=== PATIENT | male | born 1970 | race Caucasian/White ===

== ENCOUNTER 2023-04-03 08:56 | Emergency (ER) | payer BC, SELFPAY ==
[2023-04-03 09:00] VITALS: BP 172/97
[2023-04-03 10:10] LABS: % Basophils 0.6 % (0-2); % Eosinophils 2.1 % (0-6); % Immature Granulocytes 0.6 % (0-0.5); % Lymphocytes 22.7 % (20.5-51.1); % Monocytes 13.1 % (1.7-9.3); % Neutrophils 60.9 % (42.2-75.2); Absolute Eosinophils 0.2 10^3/uL (0-0.7); Absolute Lymphocytes 1.6 10^3/uL (1.2-3.4); Absolute Monocytes 0.9 10^3/uL (0.1-0.6); Absolute Neutrophils 4.4 10^3/uL (1.4-6.5); Hematocrit 43.7 % (39.0-52.0); Hemoglobin 15.5 g/dL (13.0-18.0); Mean Corp Hgb Conc. 35.5 g/dL (33.0-37.0); Mean Corpuscular Volume 90.3 fL (80.0-94.0); Mean Platelet Volume 9.7 fL (7.4-10.4); Nucleated Red Blood Cells % 0 % (-); Platelet Count 226 10^3/uL (130-400); Red Blood Cell Count 4.84 10^6/uL (4.70-6.10); Red Cell Dist. Width 11.8 % (11.5-14.5); White Blood Cell Count 7.2 10^3/uL (4.8-10.8)
[2023-04-03 10:24] LABS: ALT (SGPT) 57 U/L (0-50); AST (SGOT) 44 U/L (17-59); Albumin 4.2 g/dl (3.5-5.0); Alkaline Phosphatase 46 U/L (38-126); Blood Urea Nitrogen 13 mg/dl (9-20); Calcium 9.2 mg/dl (8.4-10.2); Carbon Dioxide 27 mmol/L (22-30); Chloride 106 mmol/L (98-107); Glucose 105 mg/dl (70-99); Potassium 4.1 mmol/L (3.5-5.1); Sodium 136 mmol/L (135-145); Total Bilirubin 0.6 mg/dl (0.2-1.3); Total Protein 6.9 g/dl (6.3-8.2); eGFR > 60.00
[2023-04-03 10:32] LABS: Troponin I < 0.012 ng/ml
[2023-04-03 11:07] VITALS: BMI 32.2
[2023-04-03 11:09] VITALS: BP 171/102
--- NOTE | 2023-04-03 11:12 | ED.GENMED ---
History of Present Illness
<Evy Mendoza PA-C - Last Filed: 04/03/23 18:39>
General
Chief Complaint: Chest Problem
Source: patient
Exam Limitations: none
Time Seen by Provider: 04/03/23 11:12
Nursing documentation reviewed up to this point in time: agreed with
Travel History
Have you had any contact with someone who has COVID-19?: No
Do you have any symptoms of coronavirus? Fever > 100 degrees, chills, cough, shortness of breath, sore throat, loss of taste or smell, muscle aches, or headache?: No
History of Present Illness
History of Present Illness:
52 y/o male with no PMH presenting to the ER today with spasming in the right side of his chest for the past few days. Patient states that when it started, he thought it was a typical muscle spasm, however this feeling persisted and his
recommended he present to emergency department for evaluation and is concerned about possible cardiac issue. Patient denies shortness of breath, back pain, jaw pain, shoulder pain, history of cardiac disease. Patient states that when he felt this
way, he took his blood pressure and he did notice it was elevated. Patient does follow-up with the family doc however he states that he primarily uses him for 6 visits via telehealth does not routinely follow-up. Said he is unsure how long his
blood pressure may have been elevated. Patient states that he has a history of early cardiac disease in his father and grandfather. Patient denies syncopal episodes dizziness. Patient states that he is not working out recently, lifting weights,
or had any trauma to the chest wall. Patient denies recent falls. Patient has never had anything like this before.
Review of Systems
<Evy Mendoza PA-C - Last Filed: 04/03/23 18:39>
Review of Systems
All Other Systems: ROS reviewed and negative except as documented in HPI and ROS
Phy Exam
<Evy Mendoza PA-C - Last Filed: 04/03/23 18:39>
Physical Exam
Physical Exam:
Vitals: Patient is hypertensive
General: Patient is well-appearing in no acute distress
Skin: Warm and dry, no rashes or lesion
Cardiac: Regular rate and rhythm, no murmurs. No palpable thrills. No palpable muscle spasms or fasciculations. Tenderness palpation of the external chest wall.
Pulm: Normal respiratory effort, no wheezes, no rales, no rhonchi.
Abdomen: No epigastric tenderness palpation, no pulsatile abdominal mass.
Neuro: Patient is awake and alert, in no acute distress.
Course
<Evy Mendoza PA-C - Last Filed: 04/03/23 18:39>
Orders/Labs/Results
Orders:
Orders
04/03/23 09:01
EKG [Electrocardiogram (*1)] Urgent
Reason for Study: Chest Pain
EKG- Treatment ONCE
04/03/23 09:45
Complete Blood Count/With Diff Urgent
Comprehensive Metabolic Panel Urgent
Troponin I Urgent
04/03/23 11:40
Metoprolol Xl [Toprol Xl] 25 mg PO NOW STA
Abnormal Lab Results
04/03/23
09:45
MCH 32.0 H pg
(27.0-31.0)
Absolute Monos (auto) 0.9 H 10^3/uL
(0.1-0.6)
Immature Gran % 0.6 H %
(0-0.5)
Monocytes % 13.1 H %
(1.7-9.3)
Glucose 105 H mg/dl
(70-99)
ALT 57 H U/L
(0-50)
04/03/23 09:45
04/03/23 09:45
Vital Signs
Initial and Last Documented VS:
Initial Vital Signs
Temp Pulse Resp BP Pulse Ox
98.2 F 94 18 172/97 97
04/03/23 09:00 04/03/23 09:00 04/03/23 09:00 04/03/23 09:00 04/03/23 09:00
Last Documented Vital Signs
Temp Pulse Resp BP Pulse Ox
98.2 F 67 18 174/118 98
04/03/23 09:00 04/03/23 12:00 04/03/23 12:00 04/03/23 11:44 04/03/23 12:00
<Anil Joaquin, DO - Last Filed: 04/12/23 13:27>
Orders/Labs/Results
Orders:
Orders
04/03/23 09:01
EKG [Electrocardiogram (*1)] Urgent
Reason for Study: Chest Pain
EKG- Treatment ONCE
04/03/23 09:45
Complete Blood Count/With Diff Urgent
Comprehensive Metabolic Panel Urgent
Troponin I Urgent
04/03/23 11:40
Metoprolol Xl [Toprol Xl] 25 mg PO NOW STA
Abnormal Lab Results
04/03/23
09:45
MCH 32.0 H pg
(27.0-31.0)
Absolute Monos (auto) 0.9 H 10^3/uL
(0.1-0.6)
Immature Gran % 0.6 H %
(0-0.5)
Monocytes % 13.1 H %
(1.7-9.3)
Glucose 105 H mg/dl
(70-99)
ALT 57 H U/L
(0-50)
04/03/23 09:45
04/03/23 09:45
Vital Signs
Initial and Last Documented VS:
Initial Vital Signs
Temp Pulse Resp BP Pulse Ox
98.2 F 94 18 172/97 97
04/03/23 09:00 04/03/23 09:00 04/03/23 09:00 04/03/23 09:00 04/03/23 09:00
Last Documented Vital Signs
Temp Pulse Resp BP Pulse Ox
98.2 F 67 18 174/118 98
04/03/23 09:00 04/03/23 12:00 04/03/23 12:00 04/03/23 11:44 04/03/23 12:00
<Evy Mendoza PA-C - Last Filed: 04/03/23 18:39>
MDM/Problems Addressed
Differential Diagnosis Includes:
Differentials include ACS, gastro chondritis, musculoskeletal sprain/strain, fasiculation
MDM/Problems Addressed:
chest discomfort
Chronic conditions affecting care: Psychiatric illness (anxiety)
<BARRY Macedo Last Filed: 04/03/23 18:39>
*Pulse Oximetry
Patient hypoxic: no
*EKG
Interpreted by ED Provider?: Yes
EKG Intrepretation Date: 04/03/23
Interpretation: normal
Comparison EKG: no comparison EKG present
Heart Rate: 85
Rate: normal
Rhythm: sinus
[place]: normal axis
Interval: normal interval, normal QT interval and normal AK interval
QRS Pattern: normal QRS
Ischemia: no ischemia
*Respiratory Equipment Assistant Interpretation
Rate: normal
Interpretation: normal
Heart Rate: 74
Rhythm: sinus
*Critical Care Note
Total Time (30-74mins, 75-104mins- exclusive of procedures): Not Applicable
Data Reviewed
Review of Other/Old Records Reveals: Records (no previous records to review )
Further Testing Considered But Not Given:
Considered chest x-ray, however patient is having no respiratory symptoms, no shortness of breath, no chest pain
<Evy Mendoza PA-C - Last Filed: 04/03/23 18:39>
Patient Management
Escalation/DeEscalation of care consider admission/obs:
52-year-old male with no past medical history history Emergency Department today with feelings of muscle spasming in the right side of his chest. When I evaluated patient, he was not having the spasms. He denies chest pain, shortness of breath,
syncopal episodes, lightheadedness, nausea or vomiting. His physical exam is unremarkable. His CBC and CMP were unremarkable. I suspect his symptoms you are experiencing are likely result of benign spontaneous muscle fasciculations. Considering
patient has poor outpatient follow-up and has had elevated pressures here in the emergency department, will start patient on metoprolol. Until he is able to get in with cardiology/his PCP. Considering he had an episode of chest and has a history
of early cardiac in the family, we will have him follow-up with cardiology and make an appointment within the coming days.
ED Attending Note
<Evy Mendoza PA-C - Last Filed: 04/03/23 18:39>
-
Portions of this chart may have been created with voice recognition software.� Occasional wrong word or��sound alike� substitutions may have occurred due to the inherent limitations of voice recognition software.
<Anil Joaquin DO - Last Filed: 04/12/23 13:27>
ED Attending Note
Patient seen and examined by attending physician: Yes
I performed a history and physical exam of patient and discussed management with resident, I reviewed resident's note and agree with documented findings and plan of care.: Yes
ED Attending Note:
I have reviewed and agree with history and treatment plan by Evy Mendoza. My exam revealed
Physical Exam
General: no apparent distress, not acutely ill
Neck: supple. no meningeal signs. normal posterior pharynx
Heart: s1/s2 regular rate and rhythm, no murmur. equal radial
pulses.
HEENT: Pupils equal round reactive to light, EOMI
Lungs: no acute respiratory distress. clear bilaterally
Abdomen: normal bowel sounds. not tender. no CVAT
Neuro: alert and oriented. no focal neurological deficits cranial nerves II through XII intact
Skin: no rash
Psychiatric: well kept. interactive and cooperative
Extremities: no edema. no calf tenderness. negative homans. good distal pulses
Do not suspect ACS, negative troponin. Patient stable for discharge.
Discharge Plan
Departure
Patient Disposition: Home (Routine Discharge)
Date of Disposition: 04/03/23
Time of Disposition: 12:11
Patient with high blood pressure during this ER visit?: Yes
Condition: Good
Discharge Problem:
Chest discomfort
Instructions: Chest Pain (DC), BLOOD PRESSURE
Prescriptions:
New
metoprolol succinate [Toprol XL] 25 mg tablet extended release 24 hr
25 mg PO DAILY Qty: 30 0RF
Referrals:
Titi Elena MD [Active] - Call in 1-3 days for appt
David Orta DO [Family Provider] -
Evy Mendoza PA-C [Emergency Midlevel Provider] -
Activity Restrictions/Additional Instructions:
Please return to the emergency department should you experience chest pain, shortness of breath, dizziness, lightheadedness, or other concerning signs or symptoms.
We have given you a referral for cardiology, please call for an appointment in 1 to 3 days.
Please follow-up with your family doctor.
Tomorrow, please start taking metoprolol 1 tablet daily.
Interventions
Interventions:
*Risk Screen - Suicide Last Done: 04/03/23 11:07
*General Assessment Last Done: 04/03/23 11:07
*Neglect/Abuse Screening Last Done: 04/03/23 11:07
ED- Fall Risk Assessment Last Done: 04/03/23 11:07
*ED COVID-19 Vaccine History Last Done: 04/03/23 11:07
*Nursing Disposition Last Done: 04/03/23 12:24
ED- Cardiac Assessment Last Done: 04/03/23 11:07
ED- Pulmonary Assessment Last Done: 04/03/23 11:07
Discharge Date and Time
Discharge Date/Time: 04/03/23 12:26
[2023-04-03 11:17] VITALS: BP 174/118
[2023-04-03] MEDS: TOPROL XL 25 MG PO (11:44)
== END 2023-04-03 12:26 | disposition home or self-care (01) ==
LOC: EMR 08:56
PROVIDERS: EMERGENCY PHYSICIAN Emergency Medicine; FAMILY PHYSICIAN Family Medicine
DX: R07.9 Chest pain, unspecified (principal); R03.0 Elevated blood-pressure reading, without diagnosis of hypertension
CPT/HCPCS: 99284; 80053; 84484; 85025; 93005

== ENCOUNTER → 2023-04-22 08:54 | Outpatient (REF) | payer BC, SELFPAY | LOC: RCS 08:54 | PROVIDERS: ATTENDING PHYSICIAN Internal Medicine Cardiovascular Disease; FAMILY PHYSICIAN Family Medicine | DX: R07.89 Other chest pain (principal) | CPT/HCPCS: 93306 ==

== ENCOUNTER → 2023-06-27 15:26 | Outpatient (REF) | payer BC, SELFPAY | LOC: RCS 15:26 | PROVIDERS: ATTENDING PHYSICIAN Internal Medicine Cardiovascular Disease; FAMILY PHYSICIAN Family Medicine | DX: R07.89 Other chest pain (principal) | CPT/HCPCS: 93017 ==